=== PATIENT | male | born 1950 | race Two or more races ===

== ENCOUNTER 2023-03-12 13:25 | Outpatient (REF) | payer MEDICARE, SELFPAY ==
[2023-03-12 13:47] LABS: Alanine Aminotransferase 13 U/L (16-63); Albumin Globulin Ratio 0.6; Albumin Level 2.5 g/dL (3.4-5.0); Alkaline Phosphatase 99 U/L (46-116); Anion Gap 16.1; Aspartate Amino Transferase 14 U/L (15-37); BUN Creatinine Ratio 12.8; Bilirubin Total 0.9 mg/dL (0.2-1.0); Carbon Dioxide 21.1 mmol/L (21.0-32.0); Chloride 103 mmol/L (98-107); Estimated GFR (African America 13 (>=60); Estimated GFR (Non-African Ame 11 (>=60); Globulin 4.2 g/dL; Glucose 143 mg/dL (74-106); Potassium 5.2 mmol/L (3.5-5.1); Sodium 135 mmol/L (136-145); Total Protein 6.7 g/dL (6.4-8.2)
== END 2023-03-12 13:26 | disposition home or self-care (01) ==
LOC: LAB 13:25
PROVIDERS: PCP Family Medicine; Visit Provider Nurse Practitioner Family
DX: E86.0 Dehydration (principal)
CPT/HCPCS: 36415; 80053